=== PATIENT | male | born 1990 | race Caucasian/White ===

== ENCOUNTER 2016-09-02 12:37 | Emergency (ER) | payer SELFPAY ==
[2016-09-02 12:43] VITALS: BP 148/86
--- NOTE | 2016-09-02 12:47 | ER Document Report ---
ED Medical Screen (RME) - General Stated Complaint: PSYCH PROBLEM Time seen by provider: 12:42 Mode of Arrival: Ambulatory Notes: Patient states he is here to seek treatment for drug addiction and depression. Has a history of heroin, cocaine, and Xanax use. Cocaine use was yesterday as well as smoking marijuana.. Took a Xanax today. States he has received treatment before at the [facility] in [facility] about 3 years ago. Patient states he has been sober for 3 years and relapsed about one week ago due to his depression. Denies suicidal or homicidal ideation. I have greeted and performed a rapid initial assessment of this patient. A comprehensive ED assessment and evaluation of the patient, analysis of test results and completion of the medical decision making process will be conducted by additional ED providers. - Related Data Allergies/Adverse Reactions: No Known Allergies Allergy (Unverified 09/02/16 12:43) Physical Exam - Respiratory Respiratory status: No respiratory distress Breath sounds: Normal - Cardiovascular Rhythm: Regular Heart sounds: Normal auscultation
--- NOTE | 2016-09-02 12:55 | ER Document Report ---
ED General - General Chief Complaint: Drug Abuse Stated Complaint: PSYCH PROBLEM Mode of Arrival: Ambulatory Information source: Patient Notes: 26-year-old male with a history of cocaine abuse presents with complaints of using cocaine and Xanax and marijuana Patient denies any other concerns TRAVEL OUTSIDE OF THE [place] IN LAST 30 DAYS: No - HPI Onset: Other - 2 weeks Onset/Duration: Sudden Quality of pain: No pain Severity: Moderate Pain Level: Denies Associated symptoms: Other Exacerbated by: Denies Relieved by: Denies Similar symptoms previously: Yes Recently seen / treated by doctor: Yes - Related Data Allergies/Adverse Reactions: No Known Allergies Allergy (Unverified 09/02/16 12:43) Past Medical History - Social History Smoking Status: Never Smoker Cigarette use (# per day): No Chew tobacco use (# tins/day): No Smoking Education Provided: No Frequency of alcohol use: None Drug Abuse: None Family History: Reviewed & Not Pertinent Patient has suicidal ideation: No Patient has homicidal ideation: No Renal/ Medical History: Denies: Hx Peritoneal Dialysis Review of Systems - Review of Systems Notes: REVIEW OF SYSTEMS: CONSTITUTIONAL : Denies fever, chills, or sweats. Denies recent illness. EENT: Denies eye, ear, throat, or mouth pain or symptoms. Denies nasal or sinus congestion or discharge. Denies throat, tongue, or mouth swelling or difficulty swallowing. CARDIOVASCULAR: Denies chest pain. Denies palpitations or racing or irregular heart beat. Denies ankle edema. RESPIRATORY: Denies cough, cold, or chest congestion. Denies shortness of breath, difficulty breathing, or wheezing. GASTROINTESTINAL: Denies abdominal pain or distention. Denies nausea, vomiting , or diarrhea. Denies blood in vomitus, stools, or per rectum. Denies black, tarry stools. Denies constipation. GENITOURINARY: Denies difficulty urinating, painful urination, burning, frequency, blood in urine, or discharge. MUSCULOSKELETAL: Denies back or neck pain or stiffness. Denies joint pain or swelling. SKIN: Denies rash, lesions or sores. HEMATOLOGIC : Denies easy bruising or bleeding. LYMPHATIC: Denies swollen, enlarged glands. NEUROLOGICAL: Denies confusion or altered mental status. Denies passing out or loss of consciousness. Denies dizziness or lightheadedness. Denies headache. Denies weakness or paralysis or loss of use of either side. Denies problems with gait or speech. Denies sensory loss, numbness, or tingling. Denies seizures. PSYCHIATRIC: Denies anxiety or stress. Denies depression, suicidal ideation, or homicidal ideation. ALL OTHER SYSTEMS REVIEWED AND NEGATIVE. Dictation was performed using [employer] voice recognition software PHYSICAL EXAMINATION: GENERAL: Well-appearing, well-nourished and in no acute distress. HEAD: Atraumatic, normocephalic. EYES: Pupils equal round and reactive to light, extraocular movements intact, sclera anicteric, conjunctiva are normal. ENT: Nares patent, oropharynx clear without exudates. Moist mucous membranes. NECK: Normal range of motion, supple without lymphadenopathy LUNGS: Breath sounds clear to auscultation bilaterally and equal. No wheezes rales or rhonchi. HEART: Regular rate and rhythm without murmurs ABDOMEN: Soft, nontender, nondistended abdomen. No guarding, no rebound. No masses appreciated. Musculoskeletal: Normal range of motion, no pitting or edema. No cyanosis. NEUROLOGICAL: Cranial nerves grossly intact. Normal speech, normal gait. Normal sensory, motor exams PSYCH: Normal mood, normal affect. SKIN: Needle Marked noted bilateral antecubital Physical Exam - Vital signs Vitals: Temp Pulse Resp BP Pulse Ox 97.5 F 91 16 148/86 H 98 09/02/16 12:41 09/02/16 12:41 09/02/16 12:41 09/02/16 12:41 09/02/16 12:41 Course - Re-evaluation Re-evalutation: 09/02/16 12:54 per friend patient is depressed, lives with them, has been using cocaine. Today was noted to actively using , afraid he will overdose. 09/02/16 14:18 Mental health evaluate the patient and given resources, they will walk over to [place] immediately for help Given that patient has good coping mechanisms has very close friends will assist I believe he will do well patient has been instructed to return if there are any other concerns After performing a Medical Screening Examination, I estimate there is LOW risk for ACUTE CORONARY SYNDROME, RESPIRATORY FAILURE, SEPSIS OR MENINGITIS, thus I consider the discharge disposition reasonable. The patient and I have discussed the diagnosis and risks, and we agree with discharging home with close follow- up. We also discussed returning to the Emergency Department immediately if new or worsening symptoms occur. We have discussed the symptoms which are most concerning (e.g., changing or worsening pain, trouble swallowing or breathing, neck stiffness, fever) that necessitate immediate return. - Vital Signs Vital signs: Temp Pulse Resp BP Pulse Ox 97.5 F 91 16 148/86 H 98 09/02/16 12:41 09/02/16 12:41 09/02/16 12:41 09/02/16 12:41 09/02/16 12:41 - Laboratory Result Diagrams: 09/02/16 12:55 09/02/16 12:55 Laboratory results interpreted by me: 09/02/16 12:55 Creatinine 1.35 H Calcium 10.6 H Total Bilirubin 1.4 H Salicylates < 1.0 L Acetaminophen < 10 L Discharge - Discharge Clinical Impression: Cocaine abuse, Benzodiazepine abuse, Marijuana abuse Condition: Stable Disposition: HOME, SELF-CARE Additional Instructions: Please follow-up with the care plan provided to you prior mental health team. Return immediately if there are any other concerns
[2016-09-02 13:24] LABS: ABSOLUTE EOSINOPHILS # (AUTO) 0.2 10^3/uL (0.0-0.6); ABSOLUTE LYMPHOCYTES (AUTO) 1.9 10^3/uL (0.5-4.7); ABSOLUTE MONOCYTES (AUTO) 0.4 10^3/uL (0.1-1.4); ABSOLUTE NEUT (AUTO) 5.2 10^3/uL (1.7-8.2); BASOPHILS % (AUTO) 0.2 % (0-2); HEMATOCRIT 49.3 % (37.9-51.0); HEMOGLOBIN 16.5 g/dL (13.5-17.0); HGB HCT DIFFERENCE 0.2; LYMPHOCYTES % (AUTO) 25.3 % (13-45); MEAN CORPUSCULAR HEMOGLOBIN 30.2 pg (27.0-33.4); MEAN CORPUSCULAR HGB CONC 33.5 g/dL (32.0-36.0); MEAN CORPUSCULAR VOLUME 90 fl (80-97); MONOCYTES % (AUTO) 5.2 % (3-13); RED BLOOD COUNT 5.48 10^6/uL (4.35-5.55); SEGMENTED NEUTROPHILS % (AUTO) 67.3 % (42-78); WHITE BLOOD COUNT 7.7 10^3/uL (4.0-10.5)
[2016-09-02 13:26] LABS: APPEARANCE,URINE CLEAR; BILIRUBIN,URINE NEGATIVE (NEGATIVE); GLUCOSE, URINE NEGATIVE (NEGATIVE); KETONES,URINE NEGATIVE (NEGATIVE); LEUKOCYTE ESTERASE,URINE NEGATIVE (NEGATIVE); NITRITE,URINE NEGATIVE (NEGATIVE); PROTEIN,URINE NEGATIVE (NEGATIVE); URINE SPECIFIC GRAVITY 1.016; UROBILINOGEN,URINE NEGATIVE mg/dL (<2.0)
[2016-09-02 13:46] LABS: URINE BARBITURATES SCREEN NEGATIVE; URINE METHADONE SCREEN NEGATIVE; URINE OPIATES LOW NEGATIVE; URINE PHENCYCLIDINE SCREEN NEGATIVE
[2016-09-02 13:50] LABS: ALANINE AMINOTRANSFERASE 26 U/L (21-72); ALKALINE PHOSPHATASE 56 U/L (38-126); ANION GAP 12 (5-19); ASPARTATE AMINO TRANSFERASE 23 U/L (17-59); BILIRUBIN,TOTAL 1.4 mg/dL (0.2-1.3); BLOOD UREA NITROGEN 15 mg/dL (7-20); CALCIUM 10.6 mg/dL (8.4-10.2); CARBON DIOXIDE 30 mmol/L (22-30); CHLORIDE 102 mmol/L (98-107); CREATININE RESULT 1.35 mg/dL (0.52-1.25); GLUCOSE 103 mg/dL (75-110); POTASSIUM 4.1 mmol/L (3.6-5.0); SODIUM 144.1 mmol/L (137-145); TOTAL PROTEIN 8.2 g/dL (6.3-8.2)
[2016-09-02 13:51] LABS: ALCOHOL < 10 mg/dL (NONE DETECTED)
--- NOTE | 2016-09-02 15:05 | PSYCHOLOGICAL NOTE ---
Psych Note - Psych Note Psych Note: Patient states he is here to seek treatment for drug addiction and depression. Has a history of heroin, cocaine, and Xanax use. Cocaine use was yesterday as well as smoking marijuana. Took a Xanax today. Patient states that he needs help his sobriety. He disclosed that he had been sober for 8 months however start using approximately 2 weeks ago. Patient is able to identify history was interpersonal relationship stressors. Patient sought treatment in the past and was successfully clean inpatient treatment; however, the patient feels that this time outpatient treatment with the use of his support network and coping skills will make him successful achieving sobriety. Patient was accompanied by his 2 roommates who confirmed that the patient disclosed to them morning that he needed help and assisted in going through the home clean out any paraphernalia that existed. Roommates state they 're committed to assist the patient in achieving sobriety. Clinician provided both inpatient and outpatient resources for substance abuse. Patient denies suicidal thoughts but is concerned without a plan he will resort to drugs and is afraid to overdose. Patient is alert and orientated to person place time and circumstance. Mood is euthymic with congruent affect. Patient denies suicidal and homicidal ideation. Patient denies auditory and visual hallucinations; no delusions are noted. Thought process is logical organized and linear. Conversational speech was within normal rate tone and prosody. Eye contact was well maintained. Intellectual abilities appear to be within average range. Attention and concentration were good. Insight, judgment, impulse control are fair. 292.9 (F12.99) Unspecified Cannabis-related Disorder 219.9 (F14.99) Unspecified Stimulant Related Disorder; Cocaine 292.9 (F19.99) unspecified other Substance Related Disorder 92.9 (F11.99) Unspecified opiate related Disorder; Heroin per history provided by patient Impression\plan: Patient is psychiatrically cleared for discharge. Patient denies suicidal ideation and homicidal ideation. Patient does not meet IVC criteria per [place] GS 122C. patient states he wants to achieve sobriety. Discussed interpersonal relationships as a stressor. He was able to identify coping skill going to gym. He also was able to identify support network with new roommates who stated they are dedicated to assist the patient. Clinician provided outpatient and inpatient resource list for substance abuse. Patient has shown to [facility] and will be walking in to due paperwork after discharge. Patient is psychiatrically cleared for discharge. Dr. Story was consulted on the care management of this patient ; attending physician is in agreement with recommendations and disposition.
--- NOTE | 2016-09-02 18:57 | EKG REPORT ---
SEVERITY:- ABNORMAL ECG - SINUS RHYTHM NONSPECIFIC INTRAVENTRICULAR CONDUCTION DELAY PROBABLE LEFT VENTRICULAR HYPERTROPHY : Confirmed by: Douglas Koch MD 02-Sep-2016 18:56:23
== END 2016-09-02 14:35 | disposition home or self-care (01) ==
LOC: ER 12:37
DX: F14.10 Cocaine abuse, uncomplicated (principal); F12.10 Cannabis abuse, uncomplicated; F19.10 Other psychoactive substance abuse, uncomplicated; F32.9 Major depressive disorder, single episode, unspecified
CPT/HCPCS: 36415; 80053; 80307; 81001; 85025; 93005; 93010; 99285